=== PATIENT | female | born 1960 | race Caucasian/White ===

== ENCOUNTER → 2017-04-08 | Outpatient (CLI) | payer OTHER ==
[~2017-04-08] MED LIST: ALLEGRA-D1 TAB.SR1 PO; CELEXA PO; IBUPROFEN PO; LOPRESSOR PO; PLAQUENIL200 MG PO; PREVACID PO; WALGREENS PHARMACY
--- NOTE | ~2017-04-08 | CR186 ---
[facility] A Service of [facility] RADIOLOGY TEXT RESULTS PATIENT: SHIRAZ GOODEN LOCATION: [facility] : 56 UNIT #: [id number] AGE: [address]: Zehra Rain MD SEX: F ORDER DR: [id number] [facility] [address]. [place], [place] [address] [id number] O MR#: [id number] #: [id number] NAME: SHIRAZ GOODEN : 1960 SEX: F STUDY DATE/TIME: 04/08/2017 12:20 UNIT: [facility] ROOM: STUDY DESCRIPTION: CR Lumbar Spine W Bend Min 6 V Attending Physician: Zehra Rain M.D. Referring Physician: Zehra Rain M.D. Ordering Physician: Zehra Rain M.D. Primary Care Physician: Fani Pizarro M.D. MEDICAL IMAGING REPORT This report is preliminary unless electronic signature is present EXAM 7 views of the lumbar spine with flexion/extension views 04/08/2017 HISTORY Worsening back pain for the past 2 months with pain rating to the right leg. Patient states she fell over 1 year ago. Symptoms began over the past 6 months. COMPARISON None. TECHNIQUE AP, lateral, spot lateral lumbosacral, right oblique, left oblique, lateral flexion and lateral section views were obtained. FINDINGS There is mild diminished disc height with vacuum disc phenomenon at L5-S1. There is approximately 6 mm anterolisthesis of L5 on S1 which is exacerbated to 11 mm on flexion, but reduces again to 6 mm on extension views. No definite spondylolytic defects are appreciated on this examination but the pars interarticularis will be better evaluated utilizing dedicated CT imaging. Remainder of the lumbar vertebral bodies maintain a normal height and alignment and maintain normal disc space height. There is diminished disc height and endplate sclerosis with anterior osteophyte formation at T12-L1. No definite bony neural foraminal stenosis is identified on this examination. No osteolytic or osteoblastic lesions are seen. [facility] A Service of [facility] RADIOLOGY TEXT RESULTS PATIENT: SHIRAZ GOODEN LOCATION: [facility] : 56 UNIT #: [id number] AGE: [address]: Zehra Rain MD SEX: F ORDER DR: IMPRESSION 1. Grade 1 anterolisthesis of L5 upon S1 which appears stable upon extension maneuver, but is exacerbated to 11 mm upon flexion, suggesting lumbar spine instability. 2. No definite L5 pars interarticularis defects are seen but the bony structures would be demonstrated to better advantage on dedicated CT lumbar spine. CT should be yet considered if surgical intervention is contemplated. Dictated by... Lisa Peña M.D. THIS IS AN ELECTRONICALLY VERIFIED REPORT Lisa Peña M.D. at 04/09/2017 12:10 PM LLH/pcl TD: 04/08/2017 19:24 JOB #: [id number] MEDICAL IMAGING REPORT Page 1 of 1 COPY
== END | disposition home or self-care (01) ==
LOC: CRAD 11:46
DX: M47.816 Spondylosis without myelopathy or radiculopathy, lumbar region (principal); M43.17 Spondylolisthesis, lumbosacral region
CPT/HCPCS: 72114